=== PATIENT | male | born 1980 | race Caucasian/White ===

== ENCOUNTER → 2021-02-28 12:17 | Outpatient (CLI) | payer OTHER, SELFPAY ==
--- NOTE | ~2021-02-28 | MR_ITS ---
EXAMINATION: MR cervical spine wo con DATE: 02/28/2021 13:00 INDICATION: Neck pain. Left arm tingling. TECHNIQUE: Magnetic resonance imaging (MRI) of the cervical spine was performed without intravenous c ontrast. Sequences included sagittal T2-weighted FSE, sagittal STIR FSE, sagittal T1-weighted FSE, ax ial MERGE, and axial T2-weighted FSE. COMPARISON: Cervical spine MRI 05/10/2018 FINDINGS: There is 3 degrees dextrocurvature of cervical spine. Vertebral body heights are normal. Th ere is mildly decreased disc height at C5-C6 and C6-C7. The spinal cord signal intensity is normal. T he following disc levels are specifically discussed: C2-C3: The disc does not extend beyond the endplate margin. There is no uncovertebral joint osteoarth ritis. There is moderate bilateral facet joint osteoarthritis. There is no neural foraminal stenosis. There is no central canal stenosis. C3-C4: The disc does not extend beyond the endplate margin. There is no uncovertebral joint osteoarth ritis. There is mild right and moderate left facet joint osteoarthritis. There is no neural foraminal stenosis. There is no central canal stenosis. C4-C5: There is a central protrusion with annular fissure. There is no uncovertebral joint osteoarthr itis. There is mild right and moderate left facet joint osteoarthritis. There is no neural foraminal stenosis. There is no central canal stenosis. C5-C6: The disc is bulging and has an annular fissure. There is moderate bilateral uncovertebral join t osteoarthritis. There is moderate bilateral facet joint osteoarthritis. There is mild bilateral karey ral foraminal stenosis. There is mild central canal stenosis. C6-C7: There is a left central extrusion. There is mild bilateral uncovertebral joint osteoarthritis. There is no facet joint osteoarthritis. There is mild bilateral neural foraminal stenosis. There is mild central canal stenosis. There is severe stenosis of left lateral recess. C7-T1: The disc does not extend beyond the endplate margin. There is no uncovertebral joint osteoarth ritis. There is mild bilateral facet joint osteoarthritis. There is no neural foraminal stenosis. The re is no central canal stenosis. IMPRESSION: 1. 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 2. Stable mild spondylosis at other levels. Reviewed, dictated and finalized at location A. RING ASSISTANT IMPRESSION: 1. New left central extrusion at C6-C7 with severe stenosis of left lateral rec ess. 2. Stable mild spondylosis at other levels.
== END ==
PROVIDERS: PCP Nurse Practitioner Family; Visit Provider Nurse Practitioner Family
DX: M54.2 Cervicalgia (principal); R20.0 Anesthesia of skin; R20.2 Paresthesia of skin; M48.02 Spinal stenosis, cervical region; M47.812 Spondylosis without myelopathy or radiculopathy, cervical region
CPT/HCPCS: 72141

== ENCOUNTER 2021-10-26 09:54 | Outpatient (CLI) | payer OTHER, SELFPAY ==
--- NOTE | 2021-11-01 15:39 | WPDHOLTEREM ---
Holter/Event Monitor Holter/Event Monitor Date of procedure: 10/26/21 Holter/Event Procedure: 24 Hr Holter Monitor Indications: Bradycardia Conclusion: 1. 24 hour holter monitor on 10/26/21. 2. Underlying rhythm is sinus rhythm. HR range 38-162 bpm; average HR 62. HR at 38 bpm was at 05:48 and HR at 162 bpm was at 09:35. 3. There are 7 premature supraventricular complexes and 1 supraventricular couplet. No supraventricular tachycardia. 4. There is 1 premature ventricular complex. No ventricular tachycardia. 5. No sinoatrial or atrioventricular blocks. No significant pauses greater than 2 seconds. 6. No symptoms available for correlation.
== END 2021-10-26 09:55 | disposition home or self-care (01) ==
PROVIDERS: PCP Family Medicine; Visit Provider Nurse Practitioner Family
DX: R00.1 Bradycardia, unspecified (principal)
CPT/HCPCS: 93225; 93226

== ENCOUNTER 2021-12-07 14:40 | Outpatient (CLI) | payer OTHER, SELFPAY ==
--- NOTE | 2021-12-07 15:07 | ECHO_ITS ---
Patient Info Name: Madi Bhandari Age: 40 years : 1980 Gender: Male Ht: 72 in Wt: 164 lbs BSA: 1.94 m2 HR: 70 bpm BP: 129 / 91 mmHg Technical Quality: Good Exam Date: 12/07/2021 3:31 PM Exam Location: [facility] Patient Status: Outpatient Admit Date: 12/07/2021 Staff Ordering Physician: Tram Enriquez Blue Crabber: Jordi Malin RDCS Attending Provider: Tram Enriquez Referring Physician: Mina GONSALES; Exam Type: CA echo doppler color flow Study Info Indications R00.1 - Bradycardia, unspecified Complete two-dimensional, color flow and Doppler transthoracic echocardiogram is performed. Summary 1. Complete two-dimensional, color flow and Doppler transthoracic echocardiogram is performed. 2. Left ventricular chamber dimension is normal. 3. Left ventricular systolic function is normal, estimated at 55-60%. 4. The left ventricular diastolic function is normal. 5. E/e' 5 is not elevated. 6. There is trace tricuspid valve regurgitation. Left Ventricle E/e' 5 is not elevated. Left ventricular chamber dimension is normal. Left ventricular systolic function is normal, estimated at 55-60%. The left ventricular diastolic function is normal. Right Ventricle Right ventricular systolic function is normal and with normal TAPSE 1.7 cm. Right ventricular chamber dimension is normal. Left Atria Left atrial chamber dimension is normal. Right Atria Right atrial chamber dimension is normal. Aortic Valve The aortic valve is trileaflet. There is no aortic valve stenosis. There is no aortic valve regurgitation. Pulmonic Valve There is no pulmonic regurgitation. Mitral Valve There is no mitral valve stenosis. There is no mitral valve regurgitation. Tricuspid Valve There is trace tricuspid valve regurgitation. RVSP is not calculated due to an inadequate TR jet. Pericardium/Pleural There is no pericardial effusion. Inferior Vena Cava Normal inferior vena cava with >50% collapse upon inspiration consistent with normal right atrial pressure, 5 mmHg. Aorta The aortic root size at the sinus of Valsalva is normal. Left Ventricular Outflow Tract Name Value Normal LVOT 2D LVOT Diameter 2.0 cm LVOT Doppler LVOT Peak Gradient 4 mmHg LVOT Mean Gradient 3 mmHg LVOT VTI 20 cm LVOT VTI/AV VTI Ratio 0.9 LVOT Stroke Volume 61 ml LVOT CO 4.4 l/min LVOT CI 2.3 l/min/m2 Mitral Valve Name Value Normal MV Doppler MV Peak Gradient 2 mmHg MV Mean Gradient 1 mmHg MV Decel Gilchrist 444 cm/s2 MV PHT
== END 2021-12-07 14:41 | disposition home or self-care (01) ==
PROVIDERS: PCP Family Medicine; Visit Provider Nurse Practitioner Family
DX: R55 Syncope and collapse (principal); R00.1 Bradycardia, unspecified
CPT/HCPCS: 93306

== ENCOUNTER 2022-05-24 08:04 | Outpatient (CLI) | payer OTHER, SELFPAY ==
--- NOTE | 2022-06-20 20:55 | WPDSLEEPSTUD ---
Sleep Study Date of Study: 05/24/22 Ordering Provider: Sarabjit Del Cid MD Interpreting Physician: Kaci Gill MD Sleep Study Type: Polysomnogram Height: 1.85 m Weight: 78.018 kg Body Mass Index: 22.6 Neck Circumference (inches): 15 [place]: 6 Reason for Sleep Study Hypersomnia Sleep History Madi Bhandari is a 41-year-old man who rarely feels rested. Over the last several years, he has had increased snoring and his reports that he has apneic episodes. He wakes at least once at night, he is not sure why he wakes. Both his mother and father had sleep problems. He does not awaken from sleep feeling short of breath. He does not awaken with heartburn, belching or coughing. Occasionally snores, rarely has trouble sleeping with a cold. He does not generally wake up gasping for breath at night. He rarely has breathing problems at night observed by others. He does not sweat excessively at night. He occasionally notices his heart pounding or beating irregularly at night. He does not fall asleep during the day or fall asleep involuntarily he does not fall asleep while driving. Does not have loss of muscle tone when extremely emotional. He generally does not have difficulty in the daytime due to excessive sleepiness. He is an document management specialist, works in office setting. He does not feel paralyzed on waking or falling asleep. He does not have vivid dreamlike scenes on waking or falling asleep. He does not feel afraid to go to sleep. He rarely has nightmares. He rarely remembers his dreams. He does not have racing thoughts. He does not feel sad or depressed. He occasionally has anxiety. Occasionally has muscular tension. He does not notice parts of his body jerking. He rarely kicks at night. He rarely has crawling and aching feelings in his legs. He rarely has any kind of leg pain at night. He occasionally has morning jaw pain. He occasionally grinds his teeth during sleep. He occasionally is bothered by pain during the day. He rarely is awakened by pain at night. He rarely wakes up feeling stiff in the morning. He occasionally wakes up with sore achy muscles. Frequently wakes up with pain in the neck and spine. He has fatigue. Normal bedtime is between 11:00 p.m. and 12 midnight falling asleep within 30 minutes. He wakes up once or more each night. He is usually able to return to sleep within 10 minutes. These awakenings occur in the middle of the night in the control technician hours. He wakes the morning between 6 and 7:00 a.m.. On weekends, he goes to bed between 11:00 p.m. and 12 midnight and wakes between 7:00 a.m. and 8:00 a.m. so he gets 1 extra hour of sleep. He generally does not take naps in the afternoon or evening. A short nap is not refreshing. He is drowsy for an hour in the morning. He feels better in the afternoon compared to other times of day. Habits: Quit tobacco 14 years ago. Caffeine 1 per day. Alcohol 3-5 per week. Recreational substances are used to help get to sleep. [facility] Past Medical History Medical History (Updated 06/20/22 @ 21:19 by Kaci Gill MD) Attention Deficit Hyperactivity Disorder (ADHD) BMI 21.0-21.9, adult BMI 22.0-22.9, adult GERD (gastroesophageal reflux disease) Family History Family History Father Hypertension Heart disease Mother No problems noted. Sibling Hypertension Social History Social History Smoking status: Former smoker Tobacco type: cigarettes Second hand tobacco smoke exposure: No Alcohol intake: current Drinks per week: 10 Substance use: current Substance use type: marijuana Other substance usage details: edibles Living arrangements: with family Additional living arrangements comments: spouse and 2 kids Occupation/Education: occupation Additional occupation/education comments: IT Gender identity
[2022-06-20 21:24] VITALS: BMI 22.6
== END 2022-05-25 07:09 | disposition home or self-care (01) ==
LOC: ANHCSM 08:05
PROVIDERS: PCP Family Medicine; Visit Provider Family Medicine
DX: G47.33 Obstructive sleep apnea (adult) (pediatric) (principal); G47.61 Periodic limb movement disorder; G47.10 Hypersomnia, unspecified; K21.9 Gastro-esophageal reflux disease without esophagitis; Z87.891 Personal history of nicotine dependence
CPT/HCPCS: 95810

== ENCOUNTER 2022-06-03 10:58 | Emergency (ER) | payer OTHER, SELFPAY ==
--- NOTE | ~2022-06-03 | XR_ITS ---
XR soft tissue neck DATE: 06/03/2022 11:48 INDICATION: Swallowed a rib bone 3 days ago. Rule out foreign body. TECHNIQUE: AP and lateral views COMPARISON: None FINDINGS: Mild degenerative disease at C6-7. Normal alignment of the cervical spine. No prevertebral soft tissue swelling or emphysema. Normal epiglottis. The tracheal air column is patent. No abnormal radiopaque foreign body is identified. IMPRESSION: No radiopaque foreign body is detected Reviewed, dictated and finalized at location A.
[2022-06-03 11:04] VITALS: BP 157/80; PULSE 66; RESP 20; TEMP 36.9; O2SAT 100
--- NOTE | 2022-06-03 11:15 | ED.ABDPAIN ---
HPI - Abdominal Pain General Chief Complaint: Unspecified Stated Complaint: feels of blockage in stomach/esophagus Time Seen by Provider: 06/03/22 11:15 History of Present Illness HPI narrative: PATIENT STATES 3 DAYS AGO HE WAS IN [place] EATING RIBS AND FEELS HE MAY HAVE SWALLOWED A PIECE OF THE BONE. PATIENT HAS BEEN ABLE TO EAT AND DRINK NORMALLY NO DROOLING NO CHEST PAIN NO SHORTNESS OF BREATH SINCE THE INCIDENT BUT FEELS IF SOMETHING IS STUCK IN THE EPIGASTRIC AREA. PATIENT IS HERE REQUESTING AN X-RAY TO VERIFY THAT THERE IS NOTHING STUCK IN THAT AREA. Related Data Home Medications Medication Instructions Recorded Confirmed cetirizine 10 mg tablet (Wal-Zyr 10 mg PO DAILY PRN 12/23/20 02/07/22 (cetirizine)) Allergies Allergy/AdvReac Type Severity Reaction Status Date / Time bee venom protein (honey bee) Allergy Unknown Unknown Verified 06/03/22 11:21 Review of Systems Review of Systems: CONSTITUTIONAL: DENIES FEVER, CHILLS, OR SWEATS. EYES: DENIES VISUAL CHANGES, REDNESS, OR DISCHARGE. ENT: DENIES RHINORRHEA, CONGESTION, SORE THROAT, OR OTALGIA. CARDIOVASCULAR: DENIES CHEST PAIN, PALPITATIONS, OR EDEMA. RESPIRATORY: DENIES COUGH OR DYSPNEA. GASTROINTESTINAL: DENIES ABDOMINAL PAIN, NAUSEA, VOMITING, OR DIARRHEA. GENITOURINARY: DENIES DYSURIA OR HEMATURIA. SKIN: DENIES RASH OR ITCHING. MUSCULOSKELETAL: DENIES BACK PAIN, JOINT PAIN, OR MYALGIA. NEUROLOGIC: DENIES HEADACHE, NUMBNESS, OR WEAKNESS. PSYCHIATRIC: DENIES ANXIETY OR DEPRESSION. [facility] Past Medical History Medical History BMI 21.0-21.9, adult BMI 22.0-22.9, adult Family History Family History Father Hypertension Heart disease Mother No problems noted. Sibling Hypertension Social History Social History Smoking status: Former smoker Tobacco type: cigarettes Second hand tobacco smoke exposure: No Alcohol intake: current Drinks per week: 10 Substance use: current Substance use type: marijuana Other substance usage details: edibles Living arrangements: with family Additional living arrangements comments: spouse and 2 kids Occupation/Education: occupation Additional occupation/education comments: IT Gender identity (if verbalized by the patient): Male Spiritual care concerns: No Agree to blood products: Yes Comments AT TIME OF SIGNATURE, AGREE WITH NURSING PAST MEDICAL, SURGICAL, SOCIAL AND FAMILY HISTORY. THERE IS NO RELEVANT FAMILY HISTORY PERTINENT TO THE PRESENTING COMPLAINT Exam Narrative: GENERAL: WELL-APPEARING, WELL-NOURISHED, AND IN NO ACUTE DISTRESS. HEAD: NORMOCEPHALIC, ATRAUMATIC. EYES: PERRLA AND EOMI. ENT: NARES CLEAR, NO RHINORRHEA OR EPISTAXIS. MUCOUS MEMBRANES MOIST. NECK: SUPPLE. CHEST: CLEAR TO AUSCULTATION. NO RESPIRATORY DISTRESS. HEART: REGULAR RATE AND RHYTHM. NO MURMUR HEARD. NORMAL PERIPHERAL PULSES. ABDOMEN: SOFT, NONTENDER, NONDISTENDED, NORMAL ACTIVE BOWEL SOUNDS. EXTREMITIES: NORMAL RANGE OF MOTION. NO EDEMA. SKIN: WARM, DRY, NO RASH. NEURO: NO FOCAL DEFICITS. ALERT AND ORIENTED X3. ENRRIQUE COMA SCALE EYE OPENING: SPONTANEOUS 4 ENRRIQUE COMA SCALE MOTOR: OBEYS COMMANDS 6 ENRRIQUE COMA SCALE VERBAL: ORIENTED 5 ENRRIQUE COMA SCALE TOTAL 15 Course Course Level of Care: Express Care Visit Vital Signs Vital signs: Vital Signs Temperature 36.9 C 06/03/22 11:04 Pulse Rate 66 06/03/22 11:04 Respiratory Rate 20 06/03/22 11:04 Blood Pressure 157/80 H 06/03/22 11:04 Pulse Oximetry 100 06/03/22 11:04 Oxygen Delivery Room Air 06/03/22 11:04 Temperature 36.9 C 06/03/22 11:04 Pulse Rate 66 06/03/22 11:04 Respiratory Rate 20 06/03/22 11:04 Blood Pressure 157/80 H 06/03/22 11:04 Pulse Oximetry 100 06/03/22 11:04 Oxygen Delivery Room Air 06/03/22 11:04 PLEASE
== END 2022-06-03 12:01 | disposition home or self-care (01) ==
PROVIDERS: Emergency Provider Nurse Practitioner Family; PCP Family Medicine
DX: T18.9XXA Foreign body of alimentary tract, part unspecified, initial encounter (principal); X58.XXXA Exposure to other specified factors, initial encounter
CPT/HCPCS: 70360; 99213; G0463

== ENCOUNTER 2022-08-08 17:20 | Outpatient (CLI) | payer OTHER, SELFPAY ==
[2022-08-08 18:27] LABS: Hematocrit 47.1 % (42.0-52.0); Hemoglobin 15.9 g/dL (14.0-18.0); Mean Corpuscular HGB Conc 33.8 g/dl (32-36); Mean Corpuscular Hemoglobin 30.9 pg (26-34); Mean Corpuscular Volume 91.5 fl (80-100); Mean Platelet Volume 10.3 fl (7.4-10.4); Platelet Count Result 263 k/mm3 (150-375); Red Blood Count 5.15 M/mm3 (4.6-6.20); White Blood Count 6.9 K/mm3 (4.5-10.0)
[2022-08-08 18:29] LABS: Alanine Aminotransferase 26 U/L (6-50); Albumin Level 4.7 g/dL (3.5-5.1); Alkaline Phosphatase 44 U/L (38-126); Anion Gap 5 mmol/L (8-16); Aspartate Amino Transferase 29 U/L (17-59); Bilirubin,Total 0.7 mg/dL (0.2-1.3); Blood Urea Nitrogen 19 mg/dL (9-20); Carbon Dioxide 34 mmol/L (22-30); Chloride 99 mmol/L (98-107); Cholesterol 183 mg/dL (0-200); Estimated Glomerular Filt Rate 47; Glucose 81 mg/dL (65-110); HDL Direct 68 mg/dL; Potassium 4.8 mmol/L (3.4-5.0); Sodium 138 mmol/L (137-145); Triglycerides 123 mg/dL (<150)
[2022-08-08 18:40] LABS: LDL Cholesterol Direct 95 mg/dL
[2022-08-08 18:43] LABS: Iron 114 ug/dL (49-181)
[2022-08-08 18:53] LABS: Percent Iron Saturation 35 % (20-50)
[2022-08-08 19:00] LABS: Prostate Specific Antigen 0.8 ng/mL (< OR = 4.0)
== END 2022-08-08 17:21 | disposition home or self-care (01) ==
LOC: ANHLAB 17:21
PROVIDERS: PCP Family Medicine; Visit Provider Nurse Practitioner Family
DX: F90.9 Attention-deficit hyperactivity disorder, unspecified type (principal); G47.33 Obstructive sleep apnea (adult) (pediatric); R06.83 Snoring; R20.0 Anesthesia of skin; R20.2 Paresthesia of skin; R40.0 Somnolence; Z12.5 Encounter for screening for malignant neoplasm of prostate
CPT/HCPCS: 36415; 80053; 80061; 82728; 83540; 83550; 84153; 85027; G0103

== ENCOUNTER 2022-10-11 08:38 | Emergency (ER) | payer OTHER, SELFPAY ==
--- NOTE | 2022-10-11 08:46 | ED.NAVMDI ---
HPI - Nausea/Vomiting/Diarrhea General Chief complaint: Nausea/Vomiting/Diarrhea Stated complaint: upset stomach /diarrhea/chills Time Seen by Provider: 10/11/22 08:46 Source: patient Mode of arrival: ambulatory Limitations: no limitations History of Present Illness HPI Narrative: Madi is a 41-year-old male patient presenting to the clinic today with complaints of nausea, headache, diarrhea, and chills x 4 days. States his symptoms started after eating some food at [employer]. No one else who has eaten neck grandson has gotten sick. Denies any abdominal bloating, abdominal pain, or fever. Denies any known sick contacts. No blood in stools. Took naproxen for the headache yesterday and that has resolved. Related Data Home Medications Medication Instructions Recorded Confirmed cetirizine 10 mg tablet (Wal-Zyr 10 mg PO DAILY PRN Allergic 12/23/20 10/11/22 (cetirizine)) Symptoms Allergies Allergy/AdvReac Type Severity Reaction Status Date / Time bee venom protein (honey bee) Allergy Unknown Unknown Verified 10/11/22 08:48 Review of Systems Review of Systems: Pertinent positives per HPI. Patient denies any fever, rash, visual changes, dizziness, cough, runny nose, sore throat, shortness of breath, chest pain, palpitations,vomiting, constipation, abdominal pain, or any urinary issues. [facility] Past Medical History Medical History (Updated 10/11/22 @ 09:12 by Ruben Cruz, NINA) Attention Deficit Hyperactivity Disorder (ADHD) BMI 21.0-21.9, adult BMI 22.0-22.9, adult GERD (gastroesophageal reflux disease) Family History Family History Father Hypertension Heart disease Mother No problems noted. Sibling Hypertension Social History Social History Smoking status: Former smoker Tobacco type: cigarettes Second hand tobacco smoke exposure: No Alcohol intake: current Drinks per week: 10 Substance use: current Substance use type: marijuana Other substance usage details: edibles Living arrangements: with family Additional living arrangements comments: spouse and 2 kids Occupation/Education: occupation Additional occupation/education comments: IT Gender identity (if verbalized by the patient): Male Spiritual care concerns: No Agree to blood products: Yes Comments At the time of my signature, I reviewed and agree with the nursing past medical, surgical, social, and family history. There is no relevant family history pertinent to the patient complaint. Exam Narrative: General: Well-developed, well nourished, in no apparent distress. Head: Normocephalic, atraumatic. Cardio: Regular rate and rhythm, s1 and s2 normal, no murmur appreciated. Resp: Clear to auscultation bilaterally, no rhonchi, rales, wheezing or rubs. Abdomen: Soft, pliable, bowel sounds present in all quadrants, non-tender to palpation, no organomegly, no CVAT tenderness. Course Course Emergency Course: Portions of this record may have been created with voice recognition software. Level of Care: Express Care Visit Vital Signs Vital signs: Vital signs reviewed MDM - Nausea/Vomiting/Diarrhea MDM Narrative Medical decision making narrative: At the time of visit patient is resting comfortably on the exam table. COVID and influenza testing were negative in the clinic today. I suspect patient has viral gastroenteritis. Supportive measures were discussed with the patient he voiced understanding discharge instructions and agrees to treatment plan. Differential Diagnosis Differential diagnosis: Likely food poisoning, gastroenteritis and dehydration Discharge Plan Discharge Clinical Impression: Gastroenteritis Patient Disposition: Home, Self-Care Condition: Stable Instructions: Antibiotic Form, Gastroenteritis (ED) Additional Instructions: COVID and influenza
[2022-10-11 08:47] VITALS: BP 138/104; PULSE 72; RESP 16; TEMP 36.7; O2SAT 100
== END 2022-10-11 09:19 | disposition home or self-care (01) ==
PROVIDERS: Emergency Provider Nurse Practitioner Family; PCP Family Medicine
DX: K52.9 Noninfective gastroenteritis and colitis, unspecified (principal); Z20.822 Contact with and (suspected) exposure to COVID-19; K21.9 Gastro-esophageal reflux disease without esophagitis; F90.9 Attention-deficit hyperactivity disorder, unspecified type
CPT/HCPCS: 87426; 87804; 99213; C9803; G0463

== ENCOUNTER 2022-11-16 19:38 | Emergency (ER) | payer OTHER, SELFPAY ==
[2022-11-16 19:44] VITALS: BP 129/87; PULSE 90; RESP 16; TEMP 36.9; O2SAT 99
--- NOTE | 2022-11-16 19:44 | ED.URI ---
HPI - URI/Sore Throat General Chief Complaint: Upper Respiratory Infection Stated Complaint: Sore Throat Source: patient and RN notes reviewed History of Present Illness HPI Narrative: 41 yo M presents to urgent care with complaints of a sore throat since Sunday. Patient also reporting a slight runny nose and congestion. Denies any ear pain, fevers, chills, chills, or shortness of breath. Related Data Allergies Allergy/AdvReac Type Severity Reaction Status Date / Time bee venom protein (honey bee) Allergy Unknown Unknown Verified 10/11/22 08:48 Review of Systems Review of Systems: CONSTITUTIONAL: Denies fever, chills, or sweats. EYES: Denies visual changes, redness, or discharge. ENT: sore throat CARDIOVASCULAR: Denies chest pain, palpitations, or edema. RESPIRATORY: Denies cough or dyspnea. GASTROINTESTINAL: Denies abdominal pain, nausea, vomiting, or diarrhea. GENITOURINARY: Denies dysuria or hematuria. SKIN: Denies rash or itching. MUSCULOSKELETAL: Denies back pain, joint pain, or myalgia. NEUROLOGIC: Denies headache, numbness, or weakness. Pertinent positives per HPI. [facility] Past Medical History Medical History (Updated 11/16/22 @ 19:54 by Jennifer Post, NINA) Attention Deficit Hyperactivity Disorder (ADHD) BMI 21.0-21.9, adult BMI 22.0-22.9, adult GERD (gastroesophageal reflux disease) Family History Family History Father Hypertension Heart disease Mother No problems noted. Sibling Hypertension Social History Social History Smoking status: Former smoker Tobacco type: cigarettes Second hand tobacco smoke exposure: No Alcohol intake: current Drinks per week: 10 Substance use: current Substance use type: marijuana Other substance usage details: edibles Living arrangements: with family Additional living arrangements comments: spouse and 2 kids Occupation/Education: occupation Additional occupation/education comments: IT Gender identity (if verbalized by the patient): Male Spiritual care concerns: No Agree to blood products: Yes Comments At the time of my signature, I reviewed and agree with the nursing past medical, surgical, social, and family history. There is no relevant family history pertinent to the patient complaint. Exam Narrative: GENERAL: This is a well-nourished, well-developed patient, in no apparent distress. HEAD: normocephalic, atraumatic. EYES: Sclera clear/white. Vision is grossly intact. EARS: External ears normal, auditory canals clear and without drainage, TMs normal without perforation. Hearing grossly intact. NOSE: External nose normal with no obvious nasal discharge, nares without redness, no rhinorrhea. THROAT: Mucous membranes moist, posterior pharynx clear. NECK: Neck supple, non-tender without lymphadenopathy, masses or thyromegaly. CARDIOVASCULAR: Regular rate RESPIRATORY: no respiratory distress NEURO: awake, alert, and oriented to person, place and time. There were no obvious focal neurologic abnormalities. Course Course Level of Care: Express Care Visit Vital Signs Vital signs: Vital Signs Temperature 98.4 F 11/16/22 19:44 Pulse Rate 90 11/16/22 19:44 Respiratory Rate 16 11/16/22 19:44 Blood Pressure 129/87 11/16/22 19:44 Pulse Oximetry 99 11/16/22 19:44 Oxygen Delivery Room Air 11/16/22 19:44 Temperature 98.4 F 11/16/22 19:44 Pulse Rate 90 11/16/22 19:44 Respiratory Rate 16 11/16/22 19:44 Blood Pressure 129/87 11/16/22 19:44 Pulse Oximetry 99 11/16/22 19:44 Oxygen Delivery Room Air 11/16/22 19:44 Reviewed MDM - URI/Sore Throat MDM Narrative Medical decision making narrative: Rapid strep is negative in the office; however we will send to the lab for confirmation; there is a small percentage chance that it can come back positive; if it is, w
== END 2022-11-16 19:57 | disposition home or self-care (01) ==
PROVIDERS: Emergency Provider Nurse Practitioner Family; PCP Family Medicine
DX: J02.9 Acute pharyngitis, unspecified (principal); Z87.891 Personal history of nicotine dependence
CPT/HCPCS: 87081; 87880; 99213; G0463

== ENCOUNTER 2023-06-28 16:27 | Emergency (ER) | payer OTHER, SELFPAY ==
[2023-06-28 16:33] VITALS: BP 136/94; PULSE 75; RESP 16; TEMP 37.7; O2SAT 100
--- NOTE | 2023-06-28 17:25 | ED.URI ---
HPI - URI/Sore Throat General Chief Complaint: Upper Respiratory Infection Stated Complaint: Sore Throat Time Seen by Provider: 06/28/23 17:12 Source: patient, RN notes reviewed and old records reviewed Mode of arrival: ambulatory Limitations: no limitations History of Present Illness HPI Narrative: 42-year-old Male patient to [facility] with complaint of sore throat, cough, runny nose, nasal congestion for 5 days. Patient endorses having 3 children at are being treated for strep throat. patient denies fever, nausea headache. Patient able to tolerate fluids by mouth. Respirations even and nonlabored. No signs of distress Related Data Allergies Allergy/AdvReac Type Severity Reaction Status Date / Time bee venom protein (honey bee) Allergy Unknown Unknown Verified 06/28/23 16:37 Review of Systems Review of Systems: All systems reviewed & are unremarkable except as noted in HPI and below Constitutional: Constitutional: Reports as per HPI and Denies headache(s) Eyes: Eyes: Reports no additional eye complaints ENT: Reports as per HPI, Reports nasal congestion, Reports nasal discharge ( clear) and Reports sore throat Cardiovascular: Cardiovascular: Reports no additional cardiovascular complaints, Denies chest pain and Denies dyspnea Respiratory: Respiratory: Reports no additional respiratory complaints, Reports cough ( nonproductive) and Denies dyspnea Musculoskeletal: Musculoskeletal: Reports no additional musculoskeletal complaints Neurologic: Reports system reviewed and no additional complaints, except as documented Psychiatric: Psychiatric: Reports no additional psychiatric complaints PMFSH Past Medical History Medical History Attention Deficit Hyperactivity Disorder (ADHD) BMI 21.0-21.9, adult BMI 22.0-22.9, adult BMI 23.0-23.9, adult Cough Foreign body GERD (gastroesophageal reflux disease) Obstructive sleep apnea Swallowed foreign body Family History Family History Father Hypertension Heart disease Mother No problems noted. Sibling Hypertension Social History Social History Smoking status: Former smoker Tobacco type: cigarettes Second hand tobacco smoke exposure: No Alcohol intake: current Drinks per week: 10 Substance use: current Substance use type: marijuana Other substance usage details: edibles Living arrangements: with family Additional living arrangements comments: spouse and 2 kids Occupation/Education: occupation Additional occupation/education comments: IT Gender identity (if verbalized by the patient): Male Spiritual care concerns: No Agree to blood products: Yes Comments At the time of my signature, I reviewed and agree with the nursing past medical, surgical, social, and family history. There is no relevant family history pertinent to the patient complaint. Exam Const: General: cooperative, healthy appearing, comfortable, no acute distress, alert, tired appearing and well nourished Nutritional Appearance: well nourished Orientation/consciousness: patient oriented x3 Limitations: no limitations HENMT: Head: normal to inspection Ears: external ears normal and TM abnormal with fluid behind the TM bilateral and diffuse Face/Nose/Sinus: Normal external nose present, Normal nares present, normal facial exam, No erythema and No edema Face and sinus: normal facial exam, no erythema and no edema Mouth: Yes Normal oral and palatal mucosa present Throat: posterior oropharynx abnormal erythema and postnasal drainage Eyes: General: appearance normal, both eyes and all related structures Neck: Neck: normal visual inspection, full ROM and no meningeal signs Lymphatic: no lymphadenopathy noted and no lymphedema noted Chest: Chest palpation & inspection: normal inspectio
== END 2023-06-28 17:32 | disposition home or self-care (01) ==
PROVIDERS: Emergency Provider Nurse Practitioner Family; PCP Family Medicine
DX: J06.9 Acute upper respiratory infection, unspecified (principal); Z87.891 Personal history of nicotine dependence; F12.90 Cannabis use, unspecified, uncomplicated; K21.9 Gastro-esophageal reflux disease without esophagitis
CPT/HCPCS: 87081; 87880; 99213; G0463

== ENCOUNTER 2023-12-13 08:32 | Outpatient (CLI) | payer OTHER, SELFPAY ==
--- NOTE | 2024-01-07 10:29 | WPDSLEEPSTUD ---
Sleep Study Date of Study: 12/13/23 Ordering Provider: GUME Terry Interpreting Physician: Merline Wang DO Sleep Study Type: Polysomnogram Height: 1.83 m Weight: 79.379 kg Body Mass Index: 23.7 Neck Circumference (inches): 16 [place]: 3 Reason for Sleep Study Difficulty maintaining sleep Sleep History The patient is a 43-year-old male that had a sleep study ordered by the pulmonary group for evaluation of sleep apnea. The patient denies awakening from sleep short of breath. He denies awakening at night with heartburn, belching or cough. He rarely snores but is never loud enough that others complain. He rarely has trouble sleeping when he has a cold. He denies waking up gasping for air throughout the night. He rarely has breathing problems at night observed by himself or others. He denies sweating excessively at night. He denies having heart palpitations or irregular heartbeats during the night. He denies falling asleep during the day and while driving. He denies sleep paralysis, cataplexy and hypnagogic / hypnopompic hallucinations. He denies having trouble at school or work due to sleepiness. He denies feeling afraid of going to sleep. He denies having nightmares. He occasionally remembers his dreams. He rarely has thoughts racing through his mind. He denies feeling sad or depressed. He rarely has anxiety. He occasionally has muscular tension. He denies noticing parts of his body jerk. He rarely kicks during the night. He rarely has crawling and aching feelings in his legs and rarely has leg pain during night. He occasionally grinds his teeth during sleep and occasionally awakens with morning jaw pain. He is rarely bothered by pain during the day and rarely awakened by pain during the night. He occasionally wakes up feeling stiff in the morning. He rarely wakes up with sore or achy muscles. He occasionally wakes up with pain in the neck, spine or other joints. He goes to bed between 10-11 p.m. on weekdays and between 11:00 p.m. to midnight on the weekends. It takes him 30 minutes to fall asleep. He wakes up once throughout the night for unknown reasons and a can takes 30-60 minutes to fall back asleep. He wakes up between 6:30-7 a.m. on weekdays and between 7-8 a.m. on the weekends. He typically gets 6-7 hours of sleep per night. He will stay in bed for 15 minutes after waking up morning. He currently lives with his and 3 children. He denies consuming any caffeinated beverages within 2 hours of bedtime. He denies engaging in physical exercise before bedtime. He will watch television before falling asleep. He denies taking in the afternoon or the evening. He consumes 1-2 caffeinated beverages per day. He quit smoking cigarettes 18 years ago. He does consume alcoholic beverages but daily. He does use an unspecified recreational drug. [facility] Past Medical History Medical History Apnea Attention Deficit Hyperactivity Disorder (ADHD) Cough Foreign body GERD (gastroesophageal reflux disease) Mild sleep apnea Obstructive sleep apnea Snoring Swallowed foreign body Family History Family History Father Hypertension Heart disease Mother No problems noted. Sibling Hypertension Social History Social History Smoking status: Former smoker Tobacco type: cigarettes Second hand tobacco smoke exposure: No Alcohol intake: current Drinks per week: 10 Substance use: current Substance use type: marijuana Other substance usage details: edibles Living arrangements: with family Additional living arrangements comments: spouse and 2 kids Occupation/Education: occupation Additional occupation/education comments: IT Gender identity (if verbalized by the patient): Male Spiritual care concerns: No Agree to blood products: Yes Medications Home Medications Medication Instructions Recorded Confirmed Type eszopiclone 2 mg tablet (Lunesta) 2 mg PO ONCE #1 tablet 09/11/23 11/08/23 Rx loratadine 10 mg tablet (Claritin) 10 mg PO DAILY 09/11/23 11/08/23 History methylphenidate HCl 10 mg tablet 10 mg PO DAILY #30 tabs 11/11/23 Rx Sleep Procedure A full night polysomnogram using the [employer] multi-channel system recorded the standard physiologic parameters including EEG, EOG, submentalis EMG, anterior tibialis EMG, EKG, body position, nasal and oral airflow using nasal pressure sensor and thermistor.? Respiratory parameters of chest and abdominal movements were recorded with Respiratory Inductance Plethysmography belts. Oxygen saturation was recorded by pulse oximetry. Video monitoring was also performed. Sleep stages, periodic limb movements, and EEG arousals were scored in 30 second epochs according to the criteria of the AASM Scoring Manual. The Apnea-Hypopnea Index was calculated using [facility] guidelines for definition of hypopnea with 4% O2 desaturations while scoring respiratory events. Sleep Architecture The total recording time was 475.7 minutes.? The total sleep time was 404.0 minutes. Sleep latency was 7.3 minutes. REM latency was 74.0 minutes. Sleep efficiency was 84.9%. The patient had 26 awakenings for an awakening index of 3.9. Wake after sleep onset time was 64.5 minutes. The patient spent 30.0 minutes, 7.4% of total sleep time in Stage N1. The patient spent 238.5 minutes, 59.0% in Stage N2. The patient spent 0.0 minutes, 0.0% in Stage N3. The patient spent 135.5 minutes, 33.5% in Stage REM sleep. Respiratory Analysis The patient had 11 hypopneas, 20 obstructive apneas and 2 central apneas for an overall Apnea Hypopnea Index of 4.9. The REM Apnea Hypopnea Index was 12.0. The NREM Apnea Hypopnea Index was 2.7. The patient had a Central Apnea Hypopnea Index of 0.3. There was no evidence of [place] Respirations. Arousals There were 69 total arousals for an arousal index of 10.2. There were 26 spontaneous arousals for an index of 3.9. There were 12 arousals due to respiratory events for an index of 1.8. There were 23 arousals due to periodic limb movements for an index of 3.4.? There were 8 arousals due to isolated limb movements for an index of 1.2. Periodic Limb Movements The patient had 20 isolated limb movements with an index of 3.0. The patient had 533 periodic limb movements with an index of 79.2, which is elevated (normal < 15). Patient had a total of 553 limb movements with a total limb movement index of 82.1. Oximetry Data The patient had an average oxygen saturation of 96.4% in sleep with a minimum oxygen saturation of 90.0% and a maximum oxygen saturation of 99.0%. The patient had 12 oxygen desaturations that were 4% or greater resulting in an Oxygen Desaturation Index of 1.8.? The patient spent 0 minutes of total sleep time with an oxygen saturation below 88%. Snoring Profile Moderate snoring was present throughout the study. Cardiac Profile The EKG showed normal sinus rhythm.?No arrhythmias or PVCs were seen. The patient had an average pulse rate of 46.9 bpm with a minimum pulse of rate of 38.0 bpm and a maximum pulse rate of 69.0 bpm.? EEG Profile No signs of seizure activity seen. Assessment and Plan Assessment and Plan (1) Obstructive sleep apnea: Code(s): G47.33 - Obstructive sleep apnea (adult) (pediatric) Status: Acute Assessment and Plan: The patient had an overall AHI 4.9 (CMS criteria using 4% desaturations) with desaturation down to 90%. The patient had an overall AHI of 7.0 (AASM criteria using 3% desaturations) with desaturation down to 90%. This is consistent with mild sleep apnea. Due to the patient's ADHD. he qualifies for treatment. I recommend that the patient be prescribed AutoPAP 5-15 cm H2O, CPAP mask/filters/tubing and heated humidity. A mandibular advancement device is also an acceptable form of treatment for mild sleep apnea. This should be used with all episodes of sleep.? Compliance should be reviewed within 31-90 days of starting therapy for usage greater than 4 hours per night greater than 70% of the nights. The patient should be asked about symptoms such as?excessive daytime sleepiness, quality of sleep, decreased nocturia, increased?mental functioning such as memory, mood, and concentration. The patient had a significant number of limb movements during the study with the majority being periodic in nature. The patient's sleep history does not suggest Restless Leg Syndrome. I recommend that the patient have a serum ferritin drawn for evaluation of iron deficiency anemia. If the patient has a serum ferritin less than 75 ng/mL, I recommend starting a daily iron supplement and a Vitamin C supplement for better absorption. If the serum ferritin is greater than 75 ng/mL, I recommend starting a dopamine agonist and titrating the dose until symptoms resolve. There are nonpharmacological methods to treat limb movements including daily exercise, stretching calf muscles before bed, avoiding excessive amounts of caffeine and alcohol, vitamin B supplementation, magnesium lotion massaged into legs before bed, and use of a weighted blanket. Data The data obtained during this sleep study is adequate for interpretation. Certification This sleep study has been reviewed by a board certified sleep medicine physician.
[2024-01-07 10:30] VITALS: BMI 23.7
== END 2023-12-14 07:51 | disposition home or self-care (01) ==
LOC: ANHCSM 08:35
PROVIDERS: PCP Family Medicine; Visit Provider Physician Assistant
DX: G47.33 Obstructive sleep apnea (adult) (pediatric) (principal)
CPT/HCPCS: 95810